=== PATIENT | male | born 1940 | race American Indian/Alaskan Native ===

== ENCOUNTER → 2017-07-14 | Outpatient (CLI) | payer MEDICARE, OTHER ==
[2017-07-14 08:48] LABS: ADD MAN DIFF? NO
[2017-07-14 08:55] LABS: BASO # 0.1 x10^3/uL (0.0-0.2); BASO % 1 % (0-3); EOS # 0.2 x10^3/uL (0.0-0.7); EOS % 4 % (0-3); HEMATOCRIT 49.4 % (39.0-53.0); LYMPH # 1.3 x10^3/uL (1.0-4.8); LYMPH % 22 % (24-48); MEAN CORPUSCULAR HEMOGLOBIN 27 pg (25-35); MEAN CORPUSCULAR HGB CONC 32 g/dL (31-37); MEAN CORPUSCULAR VOLUME 84 fL (79-100); MONO # 0.6 x10^3/uL (0.0-1.1); MONO % 11 % (0-9); NEUT # 3.6 x10^3uL (1.8-7.7); NEUT % 62 % (31-73); PLATELET COUNT 212 x10^3/uL (140-400); RED BLOOD COUNT 5.92 x10^6/uL (4.30-5.70); WHITE BLOOD COUNT 5.8 x10^3/uL (4.0-11.0)
[2017-07-14 09:01] LABS: ALBUMIN 3.8 g/dL (3.4-5.0); ANION GAP 6 (6-14); BLOOD UREA NITROGEN 16 mg/dL (8-26); CALCIUM 9.2 mg/dL (8.5-10.1); CARBON DIOXIDE 28 mmol/L (21-32); CHLORIDE 103 mmol/L (98-107); CREATININE 1.3 mg/dL (0.7-1.3); GFR 53.5; GLUCOSE 174 mg/dL (70-99); POTASSIUM 3.8 mmol/L (3.5-5.1); SODIUM 137 mmol/L (136-145)
[2017-07-14 09:02] LABS: PARTIAL THROMBOPLASTIN TIME 22 SEC (24-38)
[2017-07-14 09:03] LABS: PROTHROMBIN TIME PATIENT 12.5 SEC (11.7-14.0)
[2017-07-14 10:00] LABS: SEDIMENTATION RATE 21 (0-15)
[2017-07-14 12:35] LABS: BILIRUBIN,URINE NEGATIVE (NEG); CLARITY,URINE CLEAR; COLOR,URINE YELLOW; GLUCOSE,URINE >=1000 mg/dL (NEG); NITRITE,URINE NEGATIVE (NEG); PH,URINE 5.5; PROTEIN,URINE NEGATIVE (NEG-TRACE); UROBILINOGEN,URINE 0.2 mg/dL (0.2 mg/dL)
[2017-07-14 12:46] LABS: BACTERIA,URINE 0 /HPF (0-FEW); RBC,URINE 0 /HPF (0-2); SQUAMOUS EPITHELIAL CELL,UR FEW /LPF; WBC,URINE OCC /HPF (0-4)
[2017-07-14 14:20] LABS: HEMOGLOBIN A1C 8.2 % (4.8-5.6)
[2017-07-14 19:18] LABS: MRSA BY PCR Negative (Negative)
== END | disposition home or self-care (01) ==
LOC: SURGPAT 12:46
DX: Z01.818 Encounter for other preprocedural examination (principal); I10 Essential (primary) hypertension; Z96.651 Presence of right artificial knee joint
CPT/HCPCS: 36415; 71046; 80048; 81001; 82040; 82306; 83036; 85025; 85610; 85651; 85730; 87641

== ENCOUNTER → 2017-10-13 | Outpatient (CLI) | payer MEDICARE, OTHER ==
[2017-10-13 10:28] LABS: BILIRUBIN,URINE NEGATIVE (NEG); CLARITY,URINE CLEAR; COLOR,URINE YELLOW; GLUCOSE,URINE >=1000 mg/dL (NEG); NITRITE,URINE NEGATIVE (NEG); PH,URINE 5.5; PROTEIN,URINE NEGATIVE (NEG-TRACE)
[2017-10-13 10:53] LABS: BACTERIA,URINE FEW /HPF (0-FEW); RBC,URINE 0 /HPF (0-2); SQUAMOUS EPITHELIAL CELL,UR MOD /LPF
[2017-10-13 11:37] LABS: ADD MAN DIFF? NO
[2017-10-13 11:40] LABS: BASO % 1 % (0-3); EOS # 0.2 x10^3/uL (0.0-0.7); EOS % 4 % (0-3); HEMATOCRIT 46.9 % (39.0-53.0); HEMOGLOBIN 15.6 g/dL (13.0-17.5); LYMPH # 1.5 x10^3/uL (1.0-4.8); LYMPH % 28 % (24-48); MEAN CORPUSCULAR HEMOGLOBIN 28 pg (25-35); MEAN CORPUSCULAR HGB CONC 33 g/dL (31-37); MEAN CORPUSCULAR VOLUME 83 fL (79-100); MONO # 0.5 x10^3/uL (0.0-1.1); MONO % 10 % (0-9); NEUT % 57 % (31-73); PLATELET COUNT 218 x10^3/uL (140-400); RED BLOOD COUNT 5.64 x10^6/uL (4.30-5.70); RED CELL DISTRIBUTION WIDTH 14.1 % (11.5-14.5); WHITE BLOOD COUNT 5.3 x10^3/uL (4.0-11.0)
[2017-10-13 11:51] LABS: PARTIAL THROMBOPLASTIN TIME 25 SEC (24-38); PROTHROMBIN TIME PATIENT 12.5 SEC (11.7-14.0)
[2017-10-13 11:52] LABS: ANION GAP 8 (6-14); BLOOD UREA NITROGEN 23 mg/dL (8-26); CALCIUM 9.7 mg/dL (8.5-10.1); CARBON DIOXIDE 28 mmol/L (21-32); CHLORIDE 102 mmol/L (98-107); CREATININE 1.3 mg/dL (0.7-1.3); GFR 53.5; GLUCOSE 90 mg/dL (70-99); POTASSIUM 3.9 mmol/L (3.5-5.1); SODIUM 138 mmol/L (136-145)
[2017-10-13 12:45] LABS: SEDIMENTATION RATE 8 (0-15)
[2017-10-13 22:09] LABS: MRSA BY PCR Negative (Negative)
[2017-10-14 03:16] LABS: HEMOGLOBIN A1C 6.9 % (4.8-5.6)
== END | disposition home or self-care (01) ==
LOC: SURGPAT 09:44
DX: Z01.818 Encounter for other preprocedural examination (principal); E55.9 Vitamin D deficiency, unspecified; I10 Essential (primary) hypertension; R73.09 Other abnormal glucose; Z79.01 Long term (current) use of anticoagulants
CPT/HCPCS: 36415; 80048; 81001; 82040; 82306; 83036; 85025; 85610; 85651; 85730; 87641

== ENCOUNTER 2017-10-28 06:38 | Inpatient (IN) | payer MEDICARE, OTHER ==
[2017-10-28] MEDS ORDERED: LIDOCAINE 1% PF 2 ML VIAL. ID (07:00)
[2017-10-28] MEDS ORDERED: MORPHINE SULFATE 4 MG/ML DISP.SYRIN. IV ×4 (07:00→10:30)
[2017-10-28] MEDS: IV RINGERS,LACTATED 1000ML 1,000 ML IV (07:00)
[2017-10-28] MEDS ORDERED: fentaNYL PF VIAL 100 MCG/2 ML VIAL IV ×4 (07:00→10:30)
[2017-10-28] MEDS ORDERED: PROCHLORPERAZINE 10 MG/2 ML VIAL. IV ×2 (07:00→10:30)
[2017-10-28] MEDS ORDERED: ONDANSETRON PF 4 MG/2 ML VIAL. IV (07:00)
[2017-10-28 07:18] LABS: POC GLUCOSE 152 mg/dL (70-99)
[2017-10-28] MEDS: ACETAMINOPHEN 500 MG TABLET PO (07:50)
[2017-10-28] MEDS: CELECOXIB 200 MG CAPSULE. PO ×2 (07:50→21:07)
[2017-10-28] MEDS ORDERED: PROPOFOL 20 ML IV (07:55)
[2017-10-28] MEDS ORDERED: DEXAMETHASONE SOD PHOS 20 MG/5 ML VIAL. (07:55)
[2017-10-28] MEDS ORDERED: ePHEDrine PF IN SALINE 50 MG/5 ML DISP.SYRIN IV (07:55)
[2017-10-28] MEDS ORDERED: ONDANSETRON PF 4 MG/2 ML VIAL. (07:55)
[2017-10-28] MEDS ORDERED: LIDOCAINE 2% PF Vial for OR 5 ML VIAL. (07:55)
[2017-10-28] MEDS ORDERED: fentaNYL PF VIAL 250 MCG/5 ML VIAL (07:56)
[2017-10-28] MEDS ORDERED: ROCURONIUM 50 MG/5 ML VIAL. (07:57)
[2017-10-28] MEDS: TRANEXAMIC ACID 1,000 MG in IV NS 50ML -- 1ST BAG INJ (08:25)
[2017-10-28] MEDS: VANCOMYCIN 1 GM VIAL. (08:40)
[2017-10-28] MEDS: TOBRAMYCIN POWDER 1.2 GM VIAL. (08:40)
[2017-10-28] MEDS: MORPHINE SULFATE 5 MG, KETOROLAC 30 MG, ROPIVacaine 0.5% PF 60 ML, EPINEPHrine 0.5 MG i... INT ART (08:40)
[2017-10-28] MEDS ORDERED: hydrALAZINE 20 MG/ML VIAL. (08:47)
[2017-10-28] MEDS: TRANEXAMIC ACID 1,000 MG in IV NS 50ML -- 2ND BAG INJ (09:50)
[2017-10-28] MEDS ORDERED: ACETAMINOPHEN 325 MG TABLET. PO (10:30)
[2017-10-28] MEDS ORDERED: oxyCODONE/APAP 5/325 1 TAB TABLET PO (10:30)
[2017-10-28] MEDS ORDERED: traMADol 50 MG TABLET PO ×2 (10:30)
[2017-10-28] MEDS ORDERED: MORPHINE SULFATE 10 MG/ML VIAL. IV (10:30)
[2017-10-28] MEDS ORDERED: PROCHLORPERAZINE 5 MG TABLET. PO (10:30)
[2017-10-28] MEDS ORDERED: 0.9 % SODIUM CHLORIDE 10 ML DISP.SYRIN. IV (10:30)
[2017-10-28] MEDS ORDERED: oxyCODONE/APAP 7.5/325 1 TAB TABLET PO (10:30)
[2017-10-28] MEDS ORDERED: ZOLPIDEM 5 MG TABLET. PO (10:30)
[2017-10-28] MEDS ORDERED: diphenhydrAMINE 50 MG/ML VIAL IV (10:30)
[2017-10-28] MEDS ORDERED: HYDROcodone/APAP 10/325 1 TAB TABLET PO (10:30)
[2017-10-28] MEDS ORDERED: CALCIUM CARBONATE 500 MG TAB.CHEW PO (10:30)
[2017-10-28] MEDS ORDERED: METOCLOPRAMIDE HCL 10 MG/2 ML VIAL. IV (10:30)
[2017-10-28] MEDS ORDERED: DEXTROSE 50% 25 GM / 50ML DISP.SYRIN. IV (10:30)
[2017-10-28 10:54] LABS: POC GLUCOSE 220 mg/dL (70-99)
[2017-10-28] MEDS: INSULIN ASPART 100 UNIT/ML 10ML VIAL. SQ (11:39)
[2017-10-28] MEDS: IV DEXTROSE 5 %-0.45 % NACL 1,000 ML IV ×2 (13:00→23:25)
[2017-10-28 13:46] LABS: POC GLUCOSE 193 mg/dL (70-99)
[2017-10-28] MEDS: INSULIN LISPRO 300 UNITS/3 ML INSULN.PEN. SQ ×2 (13:53→17:13)
[2017-10-28 16:40] LABS: POC GLUCOSE 326 mg/dL (70-99)
[2017-10-28] MEDS: FERROUS SULFATE 325 MG TABLET. PO (17:11)
[2017-10-28] MEDS: KETOROLAC 30 MG, BUPIVACAINE MPF 0.25% 20 ML, EPINEPHrine 0.5 MG in TOTAL VOLUME SYRING... INT ART (17:14)
[2017-10-28] MEDS: IV NORMAL SALINE 1000ML BAG 1,000 ML IV ×2 (17:20→21:17)
[2017-10-28] MEDS: ATORVASTATIN CALCIUM 10 MG TABLET. PO (21:06)
[2017-10-28] MEDS: PRIMIDONE 50 MG TABLET PO (21:06)
[2017-10-28] MEDS: ASPIRIN ENTERIC COATED 325 MG TABLET.DR. PO (21:06)
[2017-10-28] MEDS: INSULIN GLARGINE 300 UNITS/3 ML INSULN.PEN. SQ (21:17)
[2017-10-28 21:19] LABS: POC GLUCOSE 208 mg/dL (70-99)
[2017-10-29] MEDS: KETOROLAC 30 MG, BUPIVACAINE MPF 0.25% 20 ML, EPINEPHrine 0.5 MG in TOTAL VOLUME SYRING... INT ART (05:52)
[2017-10-29 05:55] LABS: HEMATOCRIT 35.9 % (39.0-53.0); HEMOGLOBIN 12.4 g/dL (13.0-17.5); MEAN CORPUSCULAR HGB CONC 35 g/dL (31-37)
[2017-10-29] MEDS ORDERED: MAGNESIUM HYDROXIDE 2,400 MG/30 ML ORAL.SUSP. PO (06:00)
[2017-10-29 07:34] LABS: POC GLUCOSE 147 mg/dL (70-99)
[2017-10-29] MEDS: FERROUS SULFATE 325 MG TABLET. PO ×2 (07:56→16:51)
[2017-10-29] MEDS: hydroCHLOROthiazide 25 MG TABLET PO (07:57)
[2017-10-29] MEDS: FOLIC ACID 1 MG TABLET. PO (07:57)
[2017-10-29] MEDS: ASPIRIN ENTERIC COATED 325 MG TABLET.DR. PO ×2 (07:57→21:25)
[2017-10-29] MEDS: CELECOXIB 200 MG CAPSULE. PO ×2 (07:57→21:25)
[2017-10-29] MEDS: LISINOPRIL 20 MG TABLET PO (07:58)
[2017-10-29] MEDS: SENNOSIDES/DOCUSATE 8.6/50MG TABLET. PO (07:58)
[2017-10-29] MEDS: MULTIVITAMIN with MINERAL TABLET. PO (07:59)
[2017-10-29] MEDS: CHOLECALCIFEROL (VITAMIN D3) 1,000 UNIT TABLET PO (07:59)
[2017-10-29] MEDS: HYDROcodone/APAP 7.5/325MG 1 TAB TABLET PO ×3 (08:00→16:27)
[2017-10-29] MEDS: INSULIN LISPRO 300 UNITS/3 ML INSULN.PEN. SQ ×3 (08:03→16:59)
[2017-10-29] MEDS ORDERED: NON FORMULARY ITEM (Empagliflozin (Jardiance) 10 MG) PO (09:00)
[2017-10-29 12:06] LABS: POC GLUCOSE 183 mg/dL (70-99)
[2017-10-29] MEDS ORDERED: BISACODYL 10 MG SUPP.RECT. PR (16:00)
[2017-10-29 16:52] LABS: POC GLUCOSE 161 mg/dL (70-99)
[2017-10-29 20:34] LABS: POC GLUCOSE 161 mg/dL (70-99)
[2017-10-29] MEDS: ATORVASTATIN CALCIUM 10 MG TABLET. PO (21:25)
[2017-10-29] MEDS: PRIMIDONE 50 MG TABLET PO (21:25)
[2017-10-29] MEDS: INSULIN GLARGINE 300 UNITS/3 ML INSULN.PEN. SQ (21:31)
[2017-10-30] MEDS: HYDROcodone/APAP 7.5/325MG 1 TAB TABLET PO ×4 (00:43→12:59)
[2017-10-30 06:12] LABS: HEMATOCRIT 36.4 % (39.0-53.0); HEMOGLOBIN 12.3 g/dL (13.0-17.5); MEAN CORPUSCULAR HGB CONC 34 g/dL (31-37)
[2017-10-30 06:45] LABS: POC GLUCOSE 181 mg/dL (70-99)
[2017-10-30] MEDS: FERROUS SULFATE 325 MG TABLET. PO ×2 (08:13→17:09)
[2017-10-30] MEDS: MULTIVITAMIN with MINERAL TABLET. PO (08:13)
[2017-10-30] MEDS: SENNOSIDES/DOCUSATE 8.6/50MG TABLET. PO (08:13)
[2017-10-30] MEDS: CHOLECALCIFEROL (VITAMIN D3) 1,000 UNIT TABLET PO (08:14)
[2017-10-30] MEDS: CELECOXIB 200 MG CAPSULE. PO ×2 (08:14→21:00)
[2017-10-30] MEDS: hydroCHLOROthiazide 25 MG TABLET PO (08:14)
[2017-10-30] MEDS: ASPIRIN ENTERIC COATED 325 MG TABLET.DR. PO ×2 (08:14→21:00)
[2017-10-30] MEDS: FOLIC ACID 1 MG TABLET. PO (08:14)
[2017-10-30] MEDS: LISINOPRIL 20 MG TABLET PO (08:18)
[2017-10-30] MEDS: INSULIN LISPRO 300 UNITS/3 ML INSULN.PEN. SQ ×3 (08:22→17:22)
[2017-10-30 11:40] LABS: POC GLUCOSE 208 mg/dL (70-99)
[2017-10-30 20:41] LABS: POC GLUCOSE 286 mg/dL (70-99)
[2017-10-30 20:42] LABS: POC GLUCOSE 319 mg/dL (70-99)
[2017-10-30] MEDS: PRIMIDONE 50 MG TABLET PO (21:00)
[2017-10-30] MEDS: ATORVASTATIN CALCIUM 10 MG TABLET. PO (21:00)
[2017-10-30] MEDS: INSULIN GLARGINE 300 UNITS/3 ML INSULN.PEN. SQ (21:03)
[2017-10-31 03:25] LABS: POC GLUCOSE 269 mg/dL (70-99)
[2017-10-31] MEDS: HYDROcodone/APAP 7.5/325MG 1 TAB TABLET PO ×3 (04:05→15:26)
[2017-10-31 05:55] LABS: HEMATOCRIT 33.9 % (39.0-53.0); HEMOGLOBIN 11.6 g/dL (13.0-17.5); MEAN CORPUSCULAR HGB CONC 34 g/dL (31-37)
[2017-10-31 06:40] LABS: POC GLUCOSE 236 mg/dL (70-99)
[2017-10-31] MEDS: INSULIN LISPRO 300 UNITS/3 ML INSULN.PEN. SQ (08:49)
[2017-10-31] MEDS: CELECOXIB 200 MG CAPSULE. PO (08:50)
[2017-10-31] MEDS: FERROUS SULFATE 325 MG TABLET. PO (08:50)
[2017-10-31] MEDS: SENNOSIDES/DOCUSATE 8.6/50MG TABLET. PO (08:50)
[2017-10-31] MEDS: CHOLECALCIFEROL (VITAMIN D3) 1,000 UNIT TABLET PO (08:50)
[2017-10-31] MEDS: MULTIVITAMIN with MINERAL TABLET. PO (08:50)
[2017-10-31] MEDS: FOLIC ACID 1 MG TABLET. PO (08:50)
[2017-10-31] MEDS: hydroCHLOROthiazide 25 MG TABLET PO (08:50)
[2017-10-31] MEDS: ASPIRIN ENTERIC COATED 325 MG TABLET.DR. PO (08:51)
[2017-10-31] MEDS: LISINOPRIL 20 MG TABLET PO (08:51)
== END 2017-10-31 15:30 | disposition home or self-care (01) | DRG 470 ==
LOC: OPSVCIP 06:38 → 4 SOUTHEST 12:26
PROVIDERS: Orthopaedic Surgery
PROC: 0SRC0J9 Replacement of Right Knee Joint with Synthetic Substitute, Cemented, Open Approach (ICD-10-PCS; principal; 2017-10-28 08:00)
PROC: 5A09357 Assistance with Respiratory Ventilation, Less than 24 Consecutive Hours, Continuous Positive Airway Pressure (ICD-10-PCS; 2017-10-28 08:00)
PROC: 5A09357 Assistance with Respiratory Ventilation, Less than 24 Consecutive Hours, Continuous Positive Airway Pressure (ICD-10-PCS; 2017-10-28 08:04)
PROC: 5A09357 Assistance with Respiratory Ventilation, Less than 24 Consecutive Hours, Continuous Positive Airway Pressure (ICD-10-PCS; 2017-10-28 08:04)
PROC: 5A09357 Assistance with Respiratory Ventilation, Less than 24 Consecutive Hours, Continuous Positive Airway Pressure (ICD-10-PCS; 2017-10-28 08:04)
DX: M17.11 Unilateral primary osteoarthritis, right knee (principal); E11.22 Type 2 diabetes mellitus with diabetic chronic kidney disease; E78.5 Hyperlipidemia, unspecified; G47.30 Sleep apnea, unspecified; I12.9 Hypertensive chronic kidney disease with stage 1 through stage 4 chronic kidney disease, or unspecified chronic kidney disease; N18.9 Chronic kidney disease, unspecified; Z87.442 Personal history of urinary calculi; Z98.49 Cataract extraction status, unspecified eye; Z82.49 Family history of ischemic heart disease and other diseases of the circulatory system; Z87.891 Personal history of nicotine dependence
CPT/HCPCS: 36415; 73560; 82962; 85014; 85018; 86850; 86900; 86901; 97116-GP; 97150-GP; 97162-GP; 97165-GO; 97530-GP; 97535-GO; C1713; J0171; J0360; J0690; J1100; J1815; J1885; J2270; J2405; J2704; J2795; J3010; J3260; J3370; J3490; J7030; J7120